=== PATIENT | female | born 1995 | race Caucasian/White ===

== ENCOUNTER 2016-08-26 05:21 | Day surgery (SDC) | payer BC ==
[~2016-08-26] VITALS: Ht 157.5 cm; Wt 65.5 kg
[2016-08-26 06:49] VITALS: Ht 157.5 cm; Wt 65.5 kg
[2016-08-26 07:20] VITALS: BP 109/58; PULSE 55; RESP 18
[2016-08-26] MEDS ORDERED: FENTAnyl 50 MCG/ML VIAL ONE (07:42)
[2016-08-26] MEDS ORDERED: MIDAZOLAM 1 MG/ML 2 ML INJ ONE ×2 (07:42)
--- NOTE | 2016-08-26 09:33 | GILP ---
DATE OF PROCEDURE: 08/26/2016 PROCEDURE PERFORMED: Esophagogastroduodenoscopy and biopsy. SURGEON: Bailey Das MD PREOPERATIVE DIAGNOSIS: Abdominal pain. POSTOPERATIVE DIAGNOSES: 1. Hiatal hernia. 2. Gastroesophageal reflux disease. 3. Gastritis with erosions. 4. Gastric mucosal biopsies were taken for H pylori test. INDICATION: The patient is a 21-year-old female patient who had upper abdominal pain, not responding to therapy. The patient was scheduled for endoscopic examination for further evaluation. The procedure and possible complications were well explained to the patient. She understood and consented to the procedure. DESCRIPTION OF PROCEDURE: Under the influence of fentanyl and Versed, the gastroscope was carefully introduced into the esophagus and under direct vision it was advanced to the stomach and through the pylorus into the duodenal bulb, and descending duodenum. Findings: Esophagus: The patient had a hiatal hernia and gastroesophageal reflux disease. Stomach: She had gastritis with erosions. Gastric mucosal biopsies were taken for H pylori. Duodenum was normal. She tolerated the procedure very well. There were no complications from the procedure. At the end of procedure she was awake with stable vital signs and she was discharged home to the care of her family. IMPRESSION: Please see postop diagnoses. PLAN: 1. Pantoprazole 40 mg p.o. q. a.m. 2. Linzess 145 mcg p.o. daily a.m. before breakfast/lunch for constipation and bloating. 3. Await H pylori test report. Dictated By: MD SOO Henley/[email or web address] /Document#: [id number]
== END 2016-08-26 10:41 | disposition home or self-care (01) ==
LOC: GIL 05:21
PROVIDERS: ATTEND Internal Medicine Gastroenterology
DX: K29.70 Gastritis, unspecified, without bleeding (principal); K21.9 Gastro-esophageal reflux disease without esophagitis; K44.9 Diaphragmatic hernia without obstruction or gangrene
CPT/HCPCS: 43239; 84703; J2250; J3010